=== PATIENT | female | born 1955 | race Caucasian/White ===

== ENCOUNTER 2017-10-21 18:08 | Emergency (ER) | payer OTHER ==
[~2017-10-21] VITALS: Ht 175.3 cm; Wt 77.1 kg
[2017-10-21 18:22] VITALS: BP 159/85
--- NOTE | 2017-10-21 19:09 | NUR ---
report given to
== END 2017-10-21 20:34 | disposition home or self-care (01) ==
LOC: ER 18:14
DX: R05 Cough (principal); I10 Essential (primary) hypertension
CPT/HCPCS: 71045; 87804 ×2; 99285; A4606; Z7610; 87400